=== PATIENT | male | born 1940 | race Caucasian/White ===

== ENCOUNTER 2023-09-05 07:29 | Emergency (ER) | payer BC ==
[~2023-09-05] VITALS: Ht 185.4 cm; Wt 100.0 kg
[2023-09-05] MEDS: SODIUM CHLORIDE 0.9% 1,000 ML IV ONE ×2 (07:55→11:10)
[2023-09-05] MEDS: ASPIRIN 325MG TABLET PO ONE (07:55)
[2023-09-05 08:14] LABS: BASOPHILS % 0.2 % (0.0-2.0); EOSINOPHILS % 0.1 % (0.0-5.0); HEMATOCRIT. 24.2 % (42.0-52.0); HEMOGLOBIN. 7.3 g/dL (14.0-18.0); MEAN CORPUSCULAR HGB CONC 30.2 g/dL (31.0-37.0); MEAN CORPUSCULAR VOLUME 99.4 fL (80.0-94.0); MEAN PLATELET VOLUME 13.4 fl (7.4-10.4); MONOCYTES % 3.9 % (2.0-8.0); NEUTROPHILS % 83.8 % (40.0-76.0); PLATELET 97 x1000/uL (130-400); RED BLOOD CELL COUNT 2.44 mill/uL (4.7-6.1); RED CELL DISTRIBUTION WIDTH 14.7 % (11.6-14.6); WHITE BLOOD COUNT 17.4 x1000/uL (4.5-11.0)
[2023-09-05 08:25] LABS: INR 1.2; PARTIAL THROMBOPLASTIN TIME 24.6 sec (23.4-31.0); PROTHROMBIN TIME 12.8 sec (9.6-11.0)
[2023-09-05 08:26] LABS: ALANINE AMINOTRANSFERASE 62 IU/L (10-49); ALBUMIN 3.5 g/dL (3.2-4.8); ASPARTATE AMINOTRANSFERASE 111 IU/L (<34); CALCIUM 8.8 mg/dL (8.7-10.4); CARBON DIOXIDE 16 mEq/L (21-32); CHLORIDE 103 mEq/L (98-107); CREATININE 1.4 mg/dL (0.6-1.3); GLUCOSE 222 mg/dL (70-105); POTASSIUM 4.9 mEq/L (3.5-5.1); PROTEIN TOTAL 5.7 g/dL (6.0-8.3); SODIUM 134 mEq/L (136-145); UREA NITROGEN BLOOD 44 mg/dL (9-23)
[2023-09-05 08:31] LABS: ETHANOL BLOOD < 10 mg/dL (<10); TROPONIN I HIGH SENSITIVITY 10353 ng/L (3.0-53)
[2023-09-05] MEDS: ENOXAPARIN 100MG/ML SYR SUBCUT SCH (10:00)
[2023-09-05] MEDS ORDERED: EPINEPHRINE 5 MG in SODIUM CHLORIDE 0.9% 245 ML IV STA (10:10)
[2023-09-05 10:12] LABS: TROPONIN I HIGH SENSITIVITY 11919 ng/L (3.0-53)
[2023-09-05] MEDS: EPINEPHRINE 5 MG in SODIUM CHLORIDE 0.9% 250 ML IV PRN (10:32)
[2023-09-05] MEDS: PIPERACILLIN/TAZO 3.375G/50ML 50 ML IV ONE (11:15)
[2023-09-05] MEDS: LIDOCAINE HCL 1% 10 MG/ML 10ML VIAL ONE (11:35)
[2023-09-05] MEDS: VANCOMYCIN 1G PREMIX 200 ML IV ONE (11:42)
[2023-09-05] MEDS: NOREPINEPHRINE 8MG/250ML PMX 250 ML IV ONE (11:43)
[2023-09-05 11:51] LABS: LACTIC ACID 8.6 mmol/L (0.4-2.0)
[2023-09-05] MEDS: ACETAMINOPHEN 325MG TABLET PO NR (13:13)
[2023-09-05] MEDS: ONDANSETRON HCL 4MG/2ML INJ IV PRN (13:13)
[2023-09-05] MEDS ORDERED: NALOXONE HCL 0.4MG/ML VIAL IV PRN (13:15)
[2023-09-05] MEDS ORDERED: HYDROCODONE/ACETAMINOPHEN 5/325MG TABLET PO PRN (13:15)
[2023-09-05] MEDS ORDERED: ACETAMINOPHEN 325MG TABLET PO PRN ×2 (14:45)
[2023-09-05] MEDS ORDERED: IPRATROPIUM/ALBUTEROL 0.5-3(2.5)MG/3ML NEB NEB PRN (14:45)
[2023-09-05] MEDS ORDERED: ONDANSETRON HCL 4MG/2ML INJ IV PRN (14:45)
[2023-09-05] MEDS ORDERED: CLONIDINE 0.1MG TABLET PO PRN (14:45)
[2023-09-05 15:05] LABS: IRON 57 ug/dL (65-175); TOTAL IRON BINDING CAPACITY 199 ug/dl (250-425)
[2023-09-05] MEDS: ATROPINE SULFATE 0.1MG/ML 10ML DISP.SYRIN IV ONE (17:40)
[2023-09-05] MEDS: EPINEPHRINE 1:1000 1 MG/ML AMP IV ONE (17:42)
[2023-09-05 17:48] VITALS: O2SAT 94
[2023-09-05] MEDS: VECURONIUM BROMIDE 10 MG/VIAL IV ONE (17:48)
[2023-09-05] MEDS: ETOMIDATE 2MG/ML 10ML VIAL IV ONE (17:48)
[2023-09-05 17:58] VITALS: PULSE 81; RESP 18
[2023-09-05] MEDS: PIPERACILLIN/TAZO 3.375G/50ML 50 ML IV NR (18:00)
[2023-09-05] MEDS: PANTOPRAZOLE SODIUM 40 MG/VIAL IV SCH (18:00)
[2023-09-05 18:19] VITALS: TEMP 98
[2023-09-05 18:22] LABS: HEMATOCRIT 29.3 % (42.0-52.0); HEMOGLOBIN 8.9 g/dL (14.0-18.0); MEAN CORPUSCULAR HEMOGLOBIN 29.3 pg (28.0-32.0); MEAN CORPUSCULAR HGB CONC 30.4 g/dL (31.0-37.0); MEAN CORPUSCULAR VOLUME 96.3 fL (80.0-94.0); PLATELET 89 x1000/uL (130-400); RED BLOOD CELL COUNT 3.04 mill/uL (4.7-6.1); RED CELL DISTRIBUTION WIDTH 17.1 % (11.6-14.6)
[2023-09-05 18:26] LABS: CLARITY URINE CLOUDY (CLEAR); COLOR URINE YELLOW (YELLOW); GLUCOSE URINE NEGATIVE (NEGATIVE); KETONES URINE NEGATIVE (NEGATIVE); LEUKOCYTE ESTERASE URINE NEGATIVE (NEGATIVE); NITRITE URINE NEGATIVE (NEGATIVE); OCCULT BLOOD URINE NEGATIVE (NEGATIVE); PROTEIN URINE NEGATIVE (NEGATIVE); UROBILINOGEN URINE 0.2 E.U./dL (0.2-1.0)
[2023-09-05] MEDS ORDERED: DOPAMINE 800MG PREMIX (DOUBLE) 250 ML IV PRN ×2 (18:30→20:00)
[2023-09-05 18:36] LABS: *AMPHETAMINES SCREEN URINE NEGATIVE (NEGATIVE); *BARBITURATES SCREEN URINE NEGATIVE (NEGATIVE); *BENZODIAZEPINES SCREEN URINE NEGATIVE (NEGATIVE); *COCAINE SCREEN URINE NEGATIVE (NEGATIVE); CANNABINOID URINE SCREEN NEGATIVE (NEGATIVE); ECSTASY MDMA SCREEN URINE NEGATIVE (NEGATIVE); METHADONE URINE SCREEN Neg (NEGATIVE); OPIATES URINE SCREEN NEGATIVE (NEGATIVE); PHENCYCLIDINE URINE SCREEN NEGATIVE (NEGATIVE)
[2023-09-05] MEDS: DEXT 5%/0.9% NACL 1,000 ML IV SCH (18:36)
[2023-09-05 18:42] LABS: BACTERIA URINE NONE SEEN; RBC URINE 0-2 /hpf (0-2); SQUAMOUS EPITHELIAL CELL URINE 1+ /lpf (RARE/1+); WBC URINE 0-2 /hpf (0-2)
[2023-09-05 18:46] LABS: BG BASE EXCESS -14.4 mmol/L (-2.0-2.0); BG CARBOXYHEMOGLOBIN 0.3 % (0.5-1.5); BG DEOXYHEMOGLOBIN 9.9 % (0.0-5.0); BG FRACTION INSPIRED OXYGEN 100; BG HCO3 ACT 15.1 mmol/L (22.0-26.0); BG METHEMOGLOBIN 0.2 % (0.0-1.5); BG OXYGEN SATURATION 90.1 % (92.0-98.5); BG OXYHEMOGLOBIN 89.6 % (94.0-97.0); BG PCO2 50.9 mmHg (35.0-45.0); BG PH 7.089 (7.350-7.450); BG SAMPLE SITE RIGHT RADIAL; BG TOTAL HEMOGLOBIN 10.7 g/dL (12.0-18.0); BG VENT MODE VENT - AC/VC
[2023-09-05 18:56] VITALS: BP 124/64
[2023-09-05 19:09] LABS: TROPONIN I HIGH SENSITIVITY 37035 ng/L (3.0-53)
[2023-09-05] MEDS ORDERED: SODIUM BICARBONATE 8.4% 1 MEQ/ML 50ML SYR IV NR (19:15)
[2023-09-05] MEDS ORDERED: NOREPINEPHRINE 8MG/250ML PMX 250 ML IV PRN (20:00)
[2023-09-05 20:10] VITALS: PULSE 135; RESP 24
[2023-09-05] MEDS ORDERED: PIPERACILLIN/TAZO 3.375G/50ML 50 ML IV SCH (22:00)
== END 2023-09-05 20:24 ==
LOC: ER 08:09 → EDBEDREQTM 09:42 → EDBEDREQ 09:42 → EDBEDREQTM 10:14 → EDBEDREQSVC 10:14 → ER 20:24
DX: I21.4 Non-ST elevation (NSTEMI) myocardial infarction (principal); D64.9 Anemia, unspecified; R53.1 Weakness; N17.9 Acute kidney failure, unspecified; R65.21 Severe sepsis with septic shock; I48.91 Unspecified atrial fibrillation; I10 Essential (primary) hypertension; R41.82 Altered mental status, unspecified; Z20.822 Contact with and (suspected) exposure to COVID-19
CPT/HCPCS: 80053; 80305; 81003; 80320; 82962; 83880; 83540; 83550; 83605; 83690; 85027; 85025; 85379; 85610; 85730; 86850; 86900; 86901; 86920; 87040; 84484; 36415; 84145; 71045 ×2; 36573; 70450; 93970; 82805; 82375; 92950; 31500; 93005; 96368; 96361; 96365; 96372; 96375; 99291; 87426; 36600; J0461; J1650; J3490 ×3; J2405; C9113; J2543; J3370; J7030; Z7610 ×7; C1725; 94002; J7050; P9016; G0480